=== PATIENT | female | born 1940 | race Caucasian/White ===

== ENCOUNTER 2016-12-25 07:41 | Outpatient (CLI) | payer MEDICARE ==
--- NOTE | 2016-12-25 09:44 | CT ---
CT OF THE CHEST WITHOUT CONTRAST: Comparison: None. History: COPD and smoker for 30 years. Lung cancer screening. Technique: Multiple contiguous axial images were obtained in a CT of the chest without contrast for low dose cancer screening protocol. Sagittal and coronal reformats were performed. FINDINGS: There is a well circumscribed 7 mm nodule in the right upper lobe on image 17 of 58. No other pulmon aure nodules are seen. Atelectasis is seen in the lingula. No pneumothorax or pleural effusion are s een. The heart is normal in size. Calcifications are seen in the coronary arteries and aorta. No obvious hilar or mediastinal lymphadenopathy are seen. The visualized subdiaphragmatic structures are unremarkable. Degenerative changes are seen in the sp ine. The chest wall soft tissues are unremarkable. IMPRESSION: There is a nodule in the right upper lobe which is probably benign. Lung rads category 3 - probably benign finding. A 6-month follow up CT is recommended to ensure stability. POS: [facility]
== END 2016-12-25 07:42 | disposition home or self-care (01) ==
LOC: CT 07:41
PROVIDERS: ATTEND Family Medicine
DX: F17.210 Nicotine dependence, cigarettes, uncomplicated (principal); J44.9 Chronic obstructive pulmonary disease, unspecified; R91.1 Solitary pulmonary nodule
CPT/HCPCS: G0297

== ENCOUNTER 2017-07-04 09:11 | Outpatient (CLI) | payer MEDICARE ==
--- NOTE | 2017-07-04 12:11 | CT ---
CT CHEST WITH CONTRAST: Date: 07/04/17 Multiple axial tomograms obtained through the chest with IV enhancement. INDICATION: Follow-up pulmonary nodule. COMPARISON: CT chest of 12/25/16. FINDINGS: The nodule in the right upper lobe is again seen. This nodule continues to measure 6-7 mm and appears unchanged. No other pulmonary nodule or mass identified. Mediastinum is unremarkable. Imaged through the upper abdomen are unremarkable. Mild stranding in the lingula anteriorly is stable. IMPRESSION: Pulmonary nodule right upper lobe is stable. Recommend a repeat chest CT which could be performed wit hout IV contrast in 6 months for continued surveillance. POS: [facility]
[2017-07-04] MEDS ORDERED: Iopamidol 370 76% 100 ML VIAL ONE (16:22)
== END 2017-07-04 09:12 | disposition home or self-care (01) ==
LOC: CT 09:11
PROVIDERS: ATTEND Family Medicine
DX: R91.1 Solitary pulmonary nodule (principal)
CPT/HCPCS: 71260; 82565

== ENCOUNTER 2018-01-20 10:21 | Outpatient (CLI) | payer MEDICARE ==
--- NOTE | 2018-01-20 13:05 | CT ---
NONCONTRAST ENHANCED CT CHEST: DATE: 01/20/2018. COMPARISON: Comparison is made to previous exam from 07/04/2017. FINDINGS: Noncontrast enhanced CT images of the chest demonstrate a 5 mm right upper lobe pulmonary parenchymal nodule seen on axial image #17 unchanged in size or shape since the previous exam. Some areas of scarring are seen in the lingula. No other definite pulmonary parenchymal mass is seen. Coronary artery calcification is seen. The mediastinum is unremarkable. No newly developed pulmonary parenchymal lesions seen. There is kyphosis seen in the thoracic spine. FINDINGS: 1. Mild kyphosis of the thoracic spine. 2. Right upper lobe stable pulmonary parenchymal lesions. POS: [facility]
== END 2018-01-20 10:22 | disposition home or self-care (01) ==
LOC: CT 10:21
PROVIDERS: ATTEND Family Medicine
DX: R91.1 Solitary pulmonary nodule (principal); M40.204 Unspecified kyphosis, thoracic region
CPT/HCPCS: 71250